=== PATIENT | female | born 1955 | race Caucasian/White ===

== ENCOUNTER 2018-10-19 18:07 | Emergency (ER) | payer BC, OTHER ==
[~2018-10-19] VITALS: Ht 170.2 cm; Wt 78.9 kg
[2018-10-19 18:08] VITALS: BP 181/73
[2018-10-19] MEDS ORDERED: ESTRADIOL 1 MG T1 M1 PO (18:42)
[2018-10-19] MEDS ORDERED: COLESTID1 GM PO (18:43)
[2018-10-19] MEDS ORDERED: DITROPAN XL10 M1 PO (18:43)
[2018-10-19] MEDS ORDERED: PRILOSEC OTC20 MG PO (18:43)
[2018-10-19] MEDS ORDERED: AVAPRO 150 MG150 M1 PO (18:44)
[2018-10-19] MEDS ORDERED: SYNTHROID25 MC1 PO (18:44)
[2018-10-19] MEDS ORDERED: LEXAPRO 10 MG T10 M2 PO (18:44)
[2018-10-19] MEDS ORDERED: TOPROL XL25 MG PO (18:45)
[2018-10-19] MEDS ORDERED: ONDANSETRON HCL4 M2 PO (18:45)
[2018-10-19] MEDS ORDERED: MULTIVITAMINS1 EAC7 PO (18:45)
[2018-10-19] MEDS ORDERED: CARAFATE 1 GM TA1 G1 PO (18:46)
[2018-10-19] MEDS ORDERED: AUGMENTIN 875-1 EACH PO (18:47)
== END 2018-10-19 18:39 | disposition home or self-care (01) ==
LOC: ER 18:07
DX: S62.655A Nondisplaced fracture of middle phalanx of left ring finger, initial encounter for closed fracture (principal); S61.255A Open bite of left ring finger without damage to nail, initial encounter; I10 Essential (primary) hypertension; W54.0XXA Bitten by dog, initial encounter; Y93.89 Activity, other specified; Y92.89 Other specified places as the place of occurrence of the external cause; Y99.8 Other external cause status